=== PATIENT | male | born 1960 | race Asian ===

== ENCOUNTER 2021-10-05 07:50 | Day surgery (SDC) | payer OTHER, SELFPAY ==
[~2021-10-05] VITALS: Ht 172.7 cm; Wt 63.5 kg
[2021-10-05] MEDS ORDERED: NS IRRIG SOLN 1000 ML IR ONE (10:39)
[2021-10-05] MEDS ORDERED: ARTICAINE HCL/EPINEPHRINE 4%/1:200,000 BIT 1.7 ML CARTRIDGE IJ ONE (10:39)
[2021-10-05] MEDS ORDERED: NS 250 ML BAG IV ONE (10:39)
[2021-10-05 11:35] VITALS: BP_SYST 124
== END 2021-10-05 10:55 | disposition home or self-care (01) ==
LOC: SDS 07:50 → SMU 07:56 → SDS 10:55
PROVIDERS: ATTEND Dentist General Practice
DX: M27.2 Inflammatory conditions of jaws (principal); K05.6 Periodontal disease, unspecified; I10 Essential (primary) hypertension; E11.9 Type 2 diabetes mellitus without complications; E78.5 Hyperlipidemia, unspecified; N40.0 Benign prostatic hyperplasia without lower urinary tract symptoms; Z79.899 Other long term (current) drug therapy; Z20.822 Contact with and (suspected) exposure to COVID-19
CPT/HCPCS: 21026; 21215; 21248; 36415; 41826; 70140; 82962; 87426; C1713 ×2; J7050

== ENCOUNTER 2021-11-17 06:32 | Day surgery (SDC) | payer OTHER ==
[~2021-11-17] VITALS: Ht 172.7 cm; Wt 63.5 kg
[2021-11-17] MEDS ORDERED: NS 250 ML IV.SOLN IV ONE (09:37)
[2021-11-17] MEDS ORDERED: NS IRRIG SOLN 1000 ML IR ONE (09:37)
[2021-11-17] MEDS ORDERED: BENZOCAINE 20% GEL 32 GM BOTTLE MM ONE (09:37)
[2021-11-17] MEDS ORDERED: ARTICAINE HCL/EPINEPHRINE 4%/1:200,000 BIT 1.7 ML CARTRIDGE IJ ONE (09:37)
[2021-11-17 13:47] VITALS: BP_SYST 119
== END 2021-11-17 10:00 | disposition home or self-care (01) ==
LOC: SMU 06:32 → SDS 06:32
PROVIDERS: ATTEND Dentist General Practice
DX: M27.2 Inflammatory conditions of jaws (principal); M89.8X0 Other specified disorders of bone, multiple sites; M26.603 Bilateral temporomandibular joint disorder, unspecified; H92.09 Otalgia, unspecified ear; K08.421 Partial loss of teeth due to periodontal diseases, class I; I10 Essential (primary) hypertension; E78.5 Hyperlipidemia, unspecified; E11.40 Type 2 diabetes mellitus with diabetic neuropathy, unspecified; K05.6 Periodontal disease, unspecified; M06.9 Rheumatoid arthritis, unspecified; K21.9 Gastro-esophageal reflux disease without esophagitis; Z86.73 Personal history of transient ischemic attack (TIA), and cerebral infarction without residual deficits; Z79.4 Long term (current) use of insulin; Z79.899 Other long term (current) drug therapy; Z20.822 Contact with and (suspected) exposure to COVID-19
CPT/HCPCS: 21215; 36415; 41826; 70140; 82962; 87426; C1713; J7050